=== PATIENT | male | born 2000 ===

== ENCOUNTER 2018-10-26 13:18 | Emergency (ER) | payer SELFPAY ==
[2018-10-26 13:25] VITALS: BP 134/96
[2018-10-26] MEDS ORDERED: IBUPROFEN PO ONE (13:27)
[2018-10-26] MEDS ORDERED: BOOSTRIX IM ONE (13:27)
[2018-10-26] MEDS ORDERED: TRIPLE ANTIBIOTIC TP ONE (13:27)
[2018-10-26] MEDS ORDERED: NACL 0.9% IR ONE (13:27)
[2018-10-26] MEDS ORDERED: XYLOCAINE 1% 20 mL INFILTRATI ONE (13:27)
--- NOTE | 2018-10-26 13:28 | Event Note ---
ED Screening Note ED Screening Note: lac left thumb needs tdap bleeding controlled dressing applied n/v intact This initial assessment/diagnostic orders/clinical plan/treatment(s) is/are subject to change based on patients health status, clinical progression and re- assessment by fellow clinical providers in the ED. Further treatment and workup at subsequent clinical providers discretion. Patient/guardian urged not to elope from the ED as their condition may be serious if not clinically assessed and managed. Initial orders include: xray wound care
--- NOTE | 2018-10-26 14:59 | XRay Report ---
LEFT THUMB 3 VIEWS INDICATION / CLINICAL INFORMATION: Left thumb laceration COMPARISON: None available. FINDINGS: BONES / JOINT(S): There is a fracture of the proximal phalanx of the left thumb with angulation of th e distal fracture fragment. There is evidence of soft tissue injury. No significant arthritis. SOFT TISSUES: There is soft tissue swelling in the thumb. There is a small amount of soft tissue gas. ADDITIONAL FINDINGS: None. Signer Name: Bertin Wood MD Signed: 10/26/2018 2:55 PM Workstation Name: [id number]
== END 2018-10-26 15:00 | disposition left against medical advice (07) ==
LOC: ED 13:18
DX: M79.645 Pain in left finger(s) (principal); Z53.21 Procedure and treatment not carried out due to patient leaving prior to being seen by health care provider